=== PATIENT | female | born 1965 | race Caucasian/White ===

== ENCOUNTER → 2019-07-20 16:38 | Outpatient (CLI) | payer BC, SELFPAY ==
[2019-07-20 17:12] LABS: Basophils # 0.1 K/mm3 (0-0.2); Basophils % 1.7 % (0.1-2.0); Eosinophils # 0.2 K/mm3 (0.0-0.4); Eosinophils % 4.8 % (0.1-12.0); Hematocrit 38.7 % (37.0-47.0); Hemoglobin 12.3 g/dL (12.2-16.2); Lymphocytes # 2.1 K/mm3 (0.7-4.5); Lymphocytes % 44.2 % (10-50); Mean Corpuscular HGB Conc 31.7 g/dL (31.8-35.4); Mean Corpuscular Hemoglobin 28.5 pg (27.0-31.2); Mean Platelet Volume 8.7 fl (7.4-10.4); Monocytes # 0.3 K/mm3 (0.1-1.0); Monocytes % 6.3 % (1.7-9.3); Neutrophils % 42.9 % (37.0-80.0); Platelet Count 328 K/mm3 (142-424); White Blood Count 4.7 K/mm3 (4.8-10.8)
[2019-07-20 17:15] LABS: Chloride 100 mmol/L (98-107); Potassium 4.1 mmoL/L (3.5-5.1); Sodium 137 mmol/L (136-145)
[2019-07-20 17:17] LABS: Alanine Aminotransferase 20 U/L (12-78); Alkaline Phosphatase 102 U/L (38-126); Aspartate Amino Transferase 29 U/L (14-36); Bilirubin,Total 0.4 mg/dl (0.2-1.3); Blood Urea Nitrogen 11 mg/dl (7-17); Estimated Glomerular Filt Rate 65 ml/min (>60); GFR (African American) 79 ML/MIN (>60)
[2019-07-20 17:18] LABS: Albumin Level 4.3 g/dl (3.5-5.0); Albumin/Globulin Ratio 1.7 (1.1-1.8); Anion Gap 10.1 mEq/L (5-15); Calcium 9.8 mg/dl (8.4-10.2); Carbon Dioxide 31 mmol/L (22.0-30.0); Chol/HDL Ratio 2.4 (1-3.5); Cholesterol 169 mg/dl (140-200); Globulin 2.6 g/dL (1.3-3.2); Glucose 103 mg/dl (74-100); HDL Cholesterol 70 mg/dl (40-60); Total Protein,Serum 6.9 g/dl (6.3-8.2); Triglycerides 88 mg/dl (30-150); VLDL Cholesterol 18 mg/dL (0-40)
[2019-07-20 17:30] LABS: Direct LDL Cholesterol 93.31 mg/dL (100-129)
[2019-07-20 17:34] LABS: T4 (Thyroxine) 9.1 ug/dl (5.53-11.0)
[2019-07-20 17:48] LABS: Thyroid Stimulating Hormone 1.06 uIU/mL (0.465-4.68)
[2019-07-22 07:38] LABS: Vitamin D 25 Hydroxy 36.6 ng/mL (30.0-100.0)
== END ==
PROVIDERS: Visit Provider Emergency Medicine
DX: Z00.00 Encounter for general adult medical examination without abnormal findings (principal); H92.01 Otalgia, right ear
CPT/HCPCS: 80053; 80061; 82652; 84436; 84443; 85025

== ENCOUNTER → 2019-08-09 09:20 | Outpatient (CLI) | payer BC, SELFPAY ==
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
== END ==
PROVIDERS: PCP Emergency Medicine; Visit Provider Orthopaedic Surgery
DX: M25.561 Pain in right knee (principal)
CPT/HCPCS: 73564

== ENCOUNTER → 2020-10-19 14:10 | Outpatient (CLI) | payer BC, SELFPAY ==
--- NOTE | 2020-10-19 14:15 | XR_ITS ---
PROCEDURE: XR KNEE LT 4V CLINICAL INDICATION: BL Knee pain COMPARISON: CR XR KNEE RT 4V from 08/09/2019 FINDINGS: No fracture or dislocation. No lytic or blastic change. There is normal mineralization. Mild osteoarthritic changes are present at the medial and lateral compartment with decrease in the joint spaces with minimal osteophyte formation at the lateral femoral condyle. The patellofemoral joint has an unremarkable appearance. There may be a small suprapatellar effusion. Other findings:None. IMPRESSION: Mild osteoarthritic change with possible small knee joint effusion Dictated by: Konstantin Monae MD 10/19/2020 14:42 Konstantin Monae MD in [place] 10/19/2020 14:42
--- NOTE | 2020-10-19 14:15 | XR_ITS ---
PROCEDURE: XR KNEE RT 4V CLINICAL INDICATION: Bilateral knee pain COMPARISON: CR XR KNEE RT 4V from 08/09/2019 FINDINGS: Severe osteoarthritic changes are present involving the lateral compartment with loss of joint space osteosclerosis and osteophyte formation. There is mild genu valgum with mild lateral translation of the tibia by proximally 6 mm. Minimal osteoarthritic change medial compartment with minimal spurring of the proximal medial tibial plateau. Suprapatellar effusion suspected. No fracture or dislocation. No lytic or blastic change. IMPRESSION: Severe osteoarthritic changes of the lateral compartment as described above with knee joint effusion Dictated by: Konstantin Monae MD 10/19/2020 14:44 Konstantin Monae MD in [place] 10/19/2020 14:44
== END ==
PROVIDERS: PCP Emergency Medicine; Visit Provider Orthopaedic Surgery
DX: M25.561 Pain in right knee (principal); M25.562 Pain in left knee
CPT/HCPCS: 73564

== ENCOUNTER → 2020-10-29 17:53 | Outpatient (CLI) | payer BC, SELFPAY ==
[2020-10-29 19:04] LABS: Chloride 98 mmol/L (98-107); Sodium 136 mmol/L (136-145)
[2020-10-29 19:05] LABS: Potassium 4.1 mmoL/L (3.5-5.1)
[2020-10-29 19:07] LABS: Alanine Aminotransferase 20 U/L (12-78); Alkaline Phosphatase 122 U/L (38-126); Anion Gap 14.1 mEq/L (5-15); Aspartate Amino Transferase 28 U/L (14-36); Bilirubin,Total 0.4 mg/dl (0.2-1.3); Blood Urea Nitrogen 13 mg/dl (7-17); Carbon Dioxide 28 mmol/L (22.0-30.0); Estimated Glomerular Filt Rate 87 ml/min (>60); GFR (African American) 105 ML/MIN (>60)
[2020-10-29 19:08] LABS: Albumin Level 4.4 g/dl (3.5-5.0); Albumin/Globulin Ratio 1.7 (1.1-1.8); Calcium 9.2 mg/dl (8.4-10.2); Cholesterol 199 mg/dl (140-200); Globulin 2.6 g/dL (1.3-3.2); Glucose 89 mg/dl (74-100); HDL Cholesterol 67 mg/dl (40-60); Triglycerides 57 mg/dl (30-150); VLDL Cholesterol 11 mg/dL (0-40)
[2020-10-29 19:18] LABS: Basophils % 0.5 % (0.1-2.0); Eosinophils # 0.2 K/mm3 (0.0-0.4); Eosinophils % 2.7 % (0.1-12.0); Hematocrit 39.1 % (37.0-47.0); Hemoglobin 12.7 g/dL (12.2-16.2); Lymphocytes # 1.8 K/mm3 (0.7-4.5); Lymphocytes % 26.5 % (10-50); Mean Corpuscular HGB Conc 32.4 g/dL (31.8-35.4); Mean Corpuscular Hemoglobin 31.4 pg (27.0-31.2); Mean Corpuscular Volume 97.1 fl (81-99); Mean Platelet Volume 9.4 fl (7.4-10.4); Monocytes # 0.4 K/mm3 (0.1-1.0); Monocytes % 6.1 % (1.7-9.3); Neutrophils # 4.3 K/mm3 (1.8-7.8); Neutrophils % 64.3 % (37.0-80.0); Platelet Count 222 K/mm3 (142-424); Red Blood Count 4.03 M/mm3 (4.20-5.40); Red Cell Distribution Width 13.6 % (11.5-17.5); White Blood Count 6.7 K/mm3 (4.8-10.8)
[2020-10-29 19:19] LABS: Direct LDL Cholesterol 104.16 mg/dL (100-129)
[2020-10-29 19:24] LABS: Free T4 (Free Thyroxine) 1.42 ng/dl (0.78-2.19)
[2020-10-29 19:25] LABS: 25-OH Vitamin D, Total 36.7 ng/mL (30-100)
[2020-10-29 19:39] LABS: Thyroid Stimulating Hormone 0.65 uIU/mL (0.465-4.68)
[2020-10-30 16:49] LABS: Benzodiazepines Screen,Urine Negative ng/ml (<200)
[2020-10-30 16:50] LABS: Amphetamine/Metha Screen,Urine Negative ng/ml (<1000); Barbiturates Screen,Urine Negative ng/ml (<200)
[2020-10-30 16:51] LABS: Methadone Screen,Urine Negative ng/ml (<300)
[2020-10-30 16:52] LABS: Cannabinoid Screen,Urine Negative ng/ml (<50); Cocaine Screen,Urine Negative ng/ml (<300)
[2020-10-30 16:53] LABS: Opiate Screen,Urine Negative ng/ml (<300); Phencyclidine Screen,Urine Negative ng/ml (<25)
== END ==
PROVIDERS: Visit Provider Emergency Medicine
DX: R53.83 Other fatigue (principal); E55.9 Vitamin D deficiency, unspecified; M25.561 Pain in right knee; Z79.899 Other long term (current) drug therapy
CPT/HCPCS: 80053; 80061; 80305; 82306; 84439; 84443; 85025

== ENCOUNTER → 2021-04-09 11:27 | Outpatient (CLI) | payer BC, SELFPAY ==
--- NOTE | 2021-04-09 11:30 | XR_ITS ---
FINAL REPORT CLINICAL HISTORY: Right knee pain. COMPARISON: October 19, 2020. FINDINGS: 4 views of the right knee obtained, including sunrise view. There is no acute fracture or dislocation. There are advanced degenerative changes, greatest in the lateral compartment. Findings are similar from the previous examination. A moderate joint effusion is present. IMPRESSION: Degenerative change and moderate joint effusion. Reviewed, Interpreted and Dictated by Ron Torrez MD Transcribed by Jesica Haile PA-C Authenticated by Ron Torrez MD on 04/09/2021 01:03:[address] [facility]
== END ==
PROVIDERS: PCP Emergency Medicine; Visit Provider Orthopaedic Surgery
DX: M25.561 Pain in right knee (principal)
CPT/HCPCS: 73564

== ENCOUNTER → 2021-04-09 16:00 | Outpatient (CLI) | payer BC, SELFPAY ==
[2021-04-09 17:42] LABS: Amphetamine/Metha Screen,Urine Negative ng/ml (<1000); Barbiturates Screen,Urine Negative ng/ml (<200)
[2021-04-09 17:43] LABS: Benzodiazepines Screen,Urine Negative ng/ml (<200); Cannabinoid Screen,Urine Negative ng/ml (<50)
[2021-04-09 17:44] LABS: Cocaine Screen,Urine Negative ng/ml (<300)
[2021-04-09 17:45] LABS: Methadone Screen,Urine Negative ng/ml (<300); Opiate Screen,Urine Negative ng/ml (<300)
[2021-04-09 17:46] LABS: Phencyclidine Screen,Urine Negative ng/ml (<25)
== END ==
PROVIDERS: Visit Provider Emergency Medicine
DX: Z79.899 Other long term (current) drug therapy (principal)
CPT/HCPCS: 80305

== ENCOUNTER → 2021-05-20 11:08 | Outpatient (CLI) | payer BC, SELFPAY ==
--- NOTE | 2021-05-20 11:10 | CA_ITS ---
APPROVED REPORT EXAM: Comprehensive 2D, Doppler, and color-flow Echocardiogram Remnant Sorter: MARTINA Weaver, RVS Ht: 5 ft 7 in Wt: 171lbs BSA: 1.89 BP: 130/82 mmHg Indications: Pre-op knee replacement for arthritis, Smoker Echo Enhancing Agent Comments: Lung impedence throughout. 2D Dimensions IVSd 0.90 cm LVEF (Visual) 74.90 % PWd 0.57 cm LA Volume 55.00 mL LVDd 4.47 cm LA Volume Index 29.10 mL/m2 (M/F) 16-34 LVDs 2.52 cm Aortic Root 1.31 cm Left Atrium 3.16 cm LVOT 1.73 cm (M/F) 1.5-2.5 M-Mode Dimensions RVDd 2.04 cm (0.9-2.6) LA Diam 3.48 cm (1.9-4.0) LVDd 5.35 cm (3.5-5.7) Ao Diam 2.62 cm (2.0-3.7) LVDs 3.80 cm (3.5-5.7) IVSd 0.83 cm (0.6-1.1) PWd 0.68 cm (0.6-1.1) EF (Teich) 55.20% EPSs 0.29 cm FS 29.00% EDV (Teich) 138.30 mL TAPSE 2.29 (<1.7) ESV (Teich) 62.00 mL LV Diastology E Decel Time 223.00 (160-240 msec) E/A Ratio 1.12 MED E' 10.30 (< 7 cm/sec) MED A' 12.90 cm/s E'/MED E' Ratio 8.09 (>14) LAT E' 10.40 (<10 cm/sec) LAT A' 8.10 cm/s E/LAT E' Ratio 8.01 (>14) Aortic Valve LVOT Max 119.00 (70-110 cm/s) LVOT VTI 23.44 cm AoV Peak Avel. 165.00 (50-130 cm/s) AO Peak GR. 10.80 mmHg AO Mean GR. 5.50 (<5 mmHg) AO VTI 34.02 (18-25 cm) EPIFANIO (VTI) 1.62 (2.5-4.5 cm2) Mitral Valve MV A Velocity 74.00 (40-130 cm/s) E/A Ratio 1.12 MV Decel. Time 223.00 (160-240 ms) MV Mean Gr. 1.30 (<2mmHg) Pulmonary Valve PV Peak Velocity 71.00 (50-150 cm/s) Tricuspid Valve TR P. Velocity 243.00 cm/s RAP Estimate 10.00 mmHg RVSP 33.60 mmHg Left Ventricle Left atrium is normal size, left ventricle is normal size, there is no concentric left ventricular hypertrophy, visually estimated ejection fraction 55% with no regional wall motion abnormality, diastolic parameters are within normal range. Right Ventricle Right atrium and right ventricle are normal size and contractility. Aortic Valve Aortic valve is minimally thickened and fibrosed, there is no aortic stenosis or aortic insufficiency. Mitral Valve Mitral valve grossly normal, there is trace mitral regurgitation. Tricuspid Valve Tricuspid grossly normal, there is trace tricuspid regurgitation, calculated right ventricular systolic pressure is 33 mmHg. Pulmonic Valve Pulmonic valve is poorly visualized. Great Vessels Aortic root is normal size. Inferior vena cava is poorly visualized. Pericardium No significant pericardial effusion noted. Conclusion 1. Normal left ventricular size, preserved left ventricular systolic function, visually estimated ejection fraction 55% with regional wall motion abnormality, diastolic parameters are within normal range. 2. Trace mitral and tricuspid regurgitation, calculated right ventricular systolic pressure 33 mmHg. 3. No significant pericardial effusion. 4. Inferior vena cava is poorly visualized. Electronically signed by : Willis Hassan MD 05/20/2021 19:40:27
== END ==
PROVIDERS: PCP Emergency Medicine; Visit Provider Emergency Medicine
DX: Z01.818 Encounter for other preprocedural examination (principal)
CPT/HCPCS: 93306

== ENCOUNTER → 2021-06-06 12:02 | Outpatient (CLI) | payer BC, SELFPAY ==
[2021-06-06 14:14] LABS: Anion Gap 13.9 mEq/L (5-15); Blood Urea Nitrogen 21 mg/dl (7-17); Calcium 9.7 mg/dl (8.4-10.2); Carbon Dioxide 25 mmol/L (22.0-30.0); Chloride 105 mmol/L (98-107); Estimated Glomerular Filt Rate 74 ml/min (>60); GFR (African American) 89 ML/MIN (>60); Glucose 90 mg/dl (74-100); Potassium 3.9 mmoL/L (3.5-5.1); Sodium 140 mmol/L (136-145)
== END ==
PROVIDERS: PCP Emergency Medicine; Visit Provider Nurse Practitioner Family
DX: I51.89 Other ill-defined heart diseases (principal); R94.31 Abnormal electrocardiogram [ECG] [EKG]
CPT/HCPCS: 36415; 80048

== ENCOUNTER → 2021-06-12 12:09 | Outpatient (CLI) | payer BC, SELFPAY ==
--- NOTE | 2021-06-12 | CA_ITS ---
APPROVED REPORT Exam: Pharmacologic Technologist: Indy Pérez Ht: 5 ft 7 in Wt: 161 lbs BSA: 1.84 m2 HR: 82 bpm BP: 117/83 mmHg Indications: Abnormal ekg, Preop clearance Medical History Medications: HCTZ,,,,, Citalopram,,,,, MeLOXICAM,,,,, Famotidine,,,,, Acetaminophen,,,,, Abilify,,,,, Stress Test Details Test: LEXISCAN HR Resting HR: 88 bpm Max Heart Rate (APMHR): 163.873046 bpm Max HR Achieved: 118 bpm Target HR (85% APMHR): 138.639081 bpm % of APMHR: 72.39 Recovery HR: 103 bpm BP Resting BP: 117.0/83.0 mmHg Max BP: 122.0/76.0 mmHg Recovery BP: 116.0/76.0 mmHg ECG Resting ECG: Normal sinus rhythm Clinical Exercise duration: 04:00 min Highest Stage Achieved: Stress ECG Conclusion Symptoms: Mild shortness of air, and headache. No chest pain. Arrhythmias/Ectopy: None ST-T Changes: No significant changes. Conclusion: Unremarkable Lexiscan stress. Myoview images reported seprately. Electronically signed by : Willis Hassan MD 06/12/2021 20:46:12
--- NOTE | 2021-06-12 12:09 | NM_ITS ---
APPROVED REPORT Exam: Nuclear Stress Test Indication: TOB USE, FM HX, ABN EKG PRE-OP Patient Location: Outpatient Stress Tech: Indy Pérez NM Tech:SUREKHA Chambers RT (R)(N)(M) Ht: 5 ft 7 in Wt: 160 lbs Bra Size: 36D HR: 82 bpm BP: 117/83 mmHg BSA: 1.84 m2 BMI: 25.0 Procedure: Patient received a 0.4 mg of intravenous Lexiscan, resting heart rate 82 bpm, resting blood pressure 117/83 mmHg, with Lexiscan maximum heart rate achived was 116 bpm which is Less than 85 resting electrocardiogram shows sinus rhythm, with Lexiscan there is less than 1.5 mm % of the maximum predicted heart rate and blood pressure was 103/71 mmHg. With Lexiscan, patient denied any complaint of chest pain. Electrocardiogram ST segment depression noted from the baseline EKG. The EKG portion of the Lexiscan is nondiagnostic. Cardiac Stress and Resting SPECT Images: Cardiac Stress and Resting SPECT images were obtained using technetium 99m Myoview 32.0 mCi stress and 10.45 mCi at rest. Gated SPECT for analysis of segmental wall motion and calculation of the ejection fraction also done. Cardiac stress and resting SPECT images show uniform myocardial activity without segmental perfusion abnormality, computer derived ejection fraction 59% with no regional wall motion abnormality, right ventricle is normal size and contractility. Conclusion: 1. The EKG portion of the Lexiscan is nondiagnostic. 2. No scintigraphic evidence of reversible ischemia seen, computer ejection fraction is 59% with no regional wall motion abnormality, right ventricle is normal size and contractility. 3. Normal Lexiscan Myoview study. Electronically signed by : Willis Hassan MD 06/12/2021 20:48:36
== END ==
PROVIDERS: PCP Emergency Medicine; Visit Provider Physician Assistant
DX: R93.1 Abnormal findings on diagnostic imaging of heart and coronary circulation (principal)
CPT/HCPCS: 78452; 93017; A9502; J2785

== ENCOUNTER → 2021-07-26 14:11 | Outpatient (CLI) | payer BC, SELFPAY ==
[2021-07-26 17:19] LABS: Benzodiazepines Screen,Urine Negative ng/ml (<200)
[2021-07-26 17:20] LABS: Amphetamine/Metha Screen,Urine Negative ng/ml (<1000)
[2021-07-26 17:21] LABS: Barbiturates Screen,Urine Negative ng/ml (<200); Cannabinoid Screen,Urine Negative ng/ml (<50)
[2021-07-26 17:22] LABS: Cocaine Screen,Urine Negative ng/ml (<300); Methadone Screen,Urine Negative ng/ml (<300)
[2021-07-26 17:23] LABS: Opiate Screen,Urine Negative ng/ml (<300)
[2021-07-26 17:24] LABS: Phencyclidine Screen,Urine Negative ng/ml (<25)
== END ==
PROVIDERS: PCP Emergency Medicine; Visit Provider Emergency Medicine
DX: M25.569 Pain in unspecified knee (principal); Z79.899 Other long term (current) drug therapy
CPT/HCPCS: 80305

== ENCOUNTER → 2021-09-18 15:10 | Outpatient (CLI) | payer BC, SELFPAY ==
[2021-09-18 14:26] LABS: Amphetamine/Metha Screen,Urine Negative ng/ml (<1000)
[2021-09-18 14:27] LABS: Barbiturates Screen,Urine Negative ng/ml (<200)
[2021-09-18 14:28] LABS: Benzodiazepines Screen,Urine Negative ng/ml (<200); Cannabinoid Screen,Urine Negative ng/ml (<50)
[2021-09-18 14:29] LABS: Cocaine Screen,Urine Negative ng/ml (<300)
[2021-09-18 14:30] LABS: Methadone Screen,Urine Negative ng/ml (<300); Opiate Screen,Urine Negative ng/ml (<300)
[2021-09-18 14:32] LABS: Phencyclidine Screen,Urine Negative ng/ml (<25)
== END ==
PROVIDERS: PCP Emergency Medicine; Visit Provider Emergency Medicine
DX: Z79.899 Other long term (current) drug therapy (principal)
CPT/HCPCS: 80305

== ENCOUNTER → 2021-10-16 14:53 | Outpatient (CLI) | payer BC, SELFPAY ==
[2021-10-16 15:00] LABS: Microscopic, Urine URINE MICROSCOPIC (MICROSCOPIC)
--- NOTE | 2021-10-16 15:12 | XR_ITS ---
FINAL REPORT CLINICAL HISTORY: pre op FINDINGS: Two views of the chest were obtained. The heart size and pulmonary vascularity are within normal limits. The mediastinum is normal. No acute pulmonary abnormality is identified. There is no pneumothorax. The bony thorax is intact. IMPRESSION: No active cardiopulmonary disease. Reviewed, Interpreted and Dictated by Jay Pillai III, MD Transcribed by Anupama Dao Authenticated and [facility]
[2021-10-16 15:23] LABS: Appearance,Urine CLEAR (Clear); Bilirubin,Urine Negative (Negative); Blood, Urine Negative (Negative); Color,Urine YELLOW (Yellow); Glucose,Urine (UA) Negative (Negative); Ketones,Urine Negative (Negative); Leukocyte Esterase,Urine Negative (Negative); Nitrate,Urine Negative (Negative); Protein,Urine Negative (Negative); Specific Gravity, Urine <= 1.005 (1.005-1.030); Urobilinogen,Urine 0.2 EU/dl (0.2)
[2021-10-16 15:32] LABS: Basophils # 0.1 K/mm3 (0-0.2); Basophils % 1.5 % (0.1-2.0); Eosinophils # 0.2 K/mm3 (0.0-0.4); Eosinophils % 2.7 % (0.1-12.0); Lymphocytes # 2.2 K/mm3 (0.7-4.5); Lymphocytes % 30.4 % (10-50); Mean Corpuscular HGB Conc 31.7 g/dL (31.8-35.4); Mean Corpuscular Hemoglobin 30.4 pg (27.0-31.2); Mean Corpuscular Volume 95.7 fl (81-99); Mean Platelet Volume 9.3 fl (7.4-10.4); Monocytes # 0.4 K/mm3 (0.1-1.0); Monocytes % 5.1 % (1.7-9.3); Neutrophils # 4.3 K/mm3 (1.8-7.8); Neutrophils % 60.2 % (37.0-80.0); Platelet Count 198 K/mm3 (142-424); Red Cell Distribution Width 13.4 % (11.5-17.5); White Blood Count 7.1 K/mm3 (4.8-10.8)
[2021-10-16 16:25] LABS: Alanine Aminotransferase 13 U/L (12-78); Albumin Level 4.3 g/dl (3.5-5.0); Albumin/Globulin Ratio 1.7 (1.1-1.8); Alkaline Phosphatase 130 U/L (38-126); Anion Gap 7.7 mEq/L (5-15); Aspartate Amino Transferase 21 U/L (14-36); Blood Urea Nitrogen 11 mg/dl (7-17); Calcium 9.6 mg/dl (8.4-10.2); Carbon Dioxide 30 mmol/L (22.0-30.0); Chloride 103 mmol/L (98-107); Estimated Glomerular Filt Rate 86 ml/min (>60); GFR (African American) 104 ML/MIN (>60); Globulin 2.6 g/dL (1.3-3.2); Glucose 100 mg/dl (74-100); Potassium 4.7 mmoL/L (3.5-5.1); Sodium 136 mmol/L (136-145); Total Protein,Serum 6.9 g/dl (6.3-8.2)
[2021-10-16 16:30] LABS: Bilirubin,Total < 0.1 mg/dl (0.2-1.3)
[2021-10-16 17:44] LABS: Bacteria,Urine Trace /lpf
== END ==
PROVIDERS: PCP Emergency Medicine; Visit Provider Orthopaedic Surgery
DX: Z01.818 Encounter for other preprocedural examination (principal); M17.11 Unilateral primary osteoarthritis, right knee; M25.561 Pain in right knee; G89.29 Other chronic pain
CPT/HCPCS: 36415; 71046; 80053; 81001; 85025; 86850

== ENCOUNTER → 2021-10-19 11:15 | Outpatient (CLI) | payer BC, SELFPAY ==
--- NOTE | 2021-10-19 11:20 | XR_ITS ---
PROCEDURE INFORMATION: Exam: XR Right Knee Exam date and time: 10/19/2021 11:24 AM Age: 56 years old Clinical indication: Screening exam; RT knee SX Thursday; Patient HX: Pre-op; Additional info: Knee pain TECHNIQUE: Imaging protocol: Radiologic exam of the Right knee. Views: 4 or more views. COMPARISON: CR XR KNEE RT 4V 04/09/2021 11:55 AM FINDINGS: Bones/joints: Loss of joint space with articular surface collapse, eburnation and osteophytosis, severe in the lateral compartment and mild medially and at the patellofemoral joint. Diffuse bone demineralization. Soft tissues: Knee joint effusion. IMPRESSION: 1. Severe degenerative change at the lateral compartment. 2. Effusion. 3. Osteopenia.
== END ==
PROVIDERS: PCP Emergency Medicine; Visit Provider Orthopaedic Surgery
DX: Z01.812 Encounter for preprocedural laboratory examination (principal); Z20.822 Contact with and (suspected) exposure to COVID-19; M25.561 Pain in right knee; M17.11 Unilateral primary osteoarthritis, right knee
CPT/HCPCS: 73564; C9803; U0003; U0005

== ENCOUNTER 2021-10-21 14:43 | Observation (INO) | payer BC, SELFPAY ==
[2021-10-21] VITALS (17 sets, daily range): BP systolic 98–121; BP diastolic 59–76; PULSE 71–88; RESP 16–19; TEMP 36.3–43; O2SAT 90–99; BMI 22.7; BMI 22.8
[2021-10-21 09:50] LABS: Coronavirus 19, PCR Not Detected (NotDetected); Influenza A, PCR Not Detected (NotDetected); Influenza B, PCR Not Detected (NotDetected)
--- NOTE | 2021-10-21 11:19 | HMH.ANESCL ---
[facility] Anesthesia Checklist - Patient Identification Patient Identification: Arm Band - Structural Data Admitted From: Home Planned Operative Procedure/s: Right TKA Consent for Planned Operative Procedure(s) Verified: Yes Verified Documents: Surgical Consent, History and Physical - NPO Status Verified Time NPO: 00:00 - Additional verifications Anesthesia Reactions: No Hx Blood Transfusions: No Blood Transfusion Reaction: No - Airway Assessment C-Spine Mobility Assessed: Yes (mp2) TMJ Mobility Assessed: Yes Dentition: Poor Dentition - Neurological Assessment Level of Consciousness: Awake, Alert - Anesthesia Plan Anesthesia Risk discussed: Yes Anesthesia Plan: Verified ASA Class: II Anesthesia Type: MAC w/Spinal (+ Adductor Canal Block) [facility] History I have reviewed the patient's past medical history: Yes Medical History: Reports:: Anxiety, Depression, Hypertension, MRSA Denies:: Cancer, Diabetes Mellitus Type 1, Diabetes Mellitus Type 2, Seizures *Have you ever received a pneumonia vaccine?: No *Have you received a flu vaccine this season?: No Other Medical History: Denies: Blood Transfusion Reaction Anesthesia experience/problems:: nac Other Surgeries: Yes: Colonoscopy, Hysterectomy-Total, Tubal Ligation, Other Amputation: No Fractures: No - *Social History Last grade of school completed: 11th or 12th Smoking Status: Current every day smoker Tobacco Type: cigarettes # Packs/Day (cigarettes): 1 Alcohol Intake: never Substance Use Type: former substance user, methamphetamine *Occupational Status:: unemployed Housing: house Household Members: family *Travel in the last 8 weeks: None - Psychiatric History Pschychiatric History:: Reports:: Anxiety, Depression Family Hx:: Heart Attack, Hypertension
--- NOTE | 2021-10-21 13:39 | XR_ITS ---
FINAL REPORT CLINICAL HISTORY: post total knee arthroplasty COMPARISON: 10/19/2021 FINDINGS: RIGHT KNEE 3 views were obtained. There are interval changes of right knee arthroplasty. A drain is present. No immediate complications are identified. IMPRESSION: Interval postoperative changes with no immediate complications identified. Reviewed, Interpreted and Dictated by Jay Pillai III, MD Transcribed by Ashley Prasad Authenticated and . [facility]
--- NOTE | 2021-10-21 14:16 | P.PN_ITS ---
[facility] Anesthesia Record Part I Intake, IV Amount: 1,500 Estimated blood loss (mL): 50 Urine output (mL): 700 Blood Pressure: 112/60 SaO2: 99 Pulse Rate: 73 Respiratory Rate: 16 Temperature: 98.3 F Patient is:: Drowsy, Stable Stable to PACU at:: 14:10
--- NOTE | 2021-10-21 14:28 | SUR.OPER ---
LATE ENTRY 1400 Time out performed for adductor canal block. Adductor canal block performed by Michell Quick CRNA. Procedure completed 1404. Pt transported to PACU via bed.
--- NOTE | 2021-10-21 14:51 | HMH.PHAINT ---
MEDICATION RECONCILIATION COMPLETED ON PATIENT USING EXTERNAL FILL HISTORY FROM PHARMACY. -BRICE BOO, NIKKOD
--- NOTE | 2021-10-21 14:53 | PC.NURSE ---
pt arrived to floor via stretcher from surgery @14:40
--- NOTE | 2021-10-21 15:00 | HMH.OPNOTE ---
Date of procedure: 10/21/21 Pre-op Diagnosis:: Advanced degenerative arthritis, right knee Post-op Diagnosis:: Same Procedure performed:: Uncemented total knee arthroplasty, right knee Surgeon:: Iron Waterman MD Business Info Consultant(s):: Aida Lowe PA-C WELDER EXPERIMENTAL:: Hilton Quick Anesthesia: regional (Adductor canal block), spinal Estimated blood loss (mL): 50 Clinical Note:: Patient is a 56-year-old female with activity limiting advanced tricompartmental osteoarthritis and severe [id number]-[id number] changes over the lateral compartment with a progressive valgus deformity of the right knee. She presented with unremitting severe pain not relieved by conservative management. The arthritic process and pain are advanced to the point that it is becoming a hazard for the patient with risk of falling and injuring herself.? A total knee arthroplasty is indicated to relieve the pain, improve function, reduce the risk of falls and improve quality of life.? She has history of anxiety, depression and arthritis. She is unemployed and is a chronic-smoker. Patient has history of drug abuse in the past and is on chronic prescribed pain medication at present. Please refer to my office note for full details. Operative findings:: As noted on the preoperative evaluation, the knee joint had a partially correctable valgus deformity of 15 degrees. As seen on the x-rays, there are tricompartmental degenerative changes with the lateral compartment showing more advanced [id number] changes. The the lateral meniscus significantly degenerated. There is osteophyte formation over all 3 compartments. Bone quality is good. Operative note:: On the day of the surgery the patient and her sister were met in the preoperative area. I have again reviewed the clinical and x-ray findings and discussed the diagnosis, natural history and management options including both nonsurgical and surgical.? Patient has advanced degenerative arthritis of the right knee and has failed to respond satisfactorily to appropriate conservative management in the past. Therefore, she has opted for a total knee arthroplasty.? The right knee joint is tender and painful, and is limiting her mobility, ADLs and quality of life.? Also, the knee gives out occasionally and patient is at risk of falls resulting in fractures.? I have again discussed the details of the procedure, risks and benefits and alternatives in detail. The complications discussed include but are not limited to infection, injury to nerves and blood vessels including injury to popliteal artery, injury to tendons and ligaments, DVT and PE, fat embolism, intraoperative fracture, limb length inequality, patella fracture, patellofemoral instability, patellar clunk syndrome, quadriceps and patellar tendon rupture, implant failure, component loosening, periprosthetic femur and tibia fractures, stiffness/arthrofibrosis, limp, incomplete relief of pain, incomplete functional recovery, likely need for further surgery in future including revision and anesthetic complications including heart attack, stroke and even .? We also discussed about the likely need for blood transfusion and transfusion reactions. We discussed how any of these events can be devastating. We have discussed nonsurgical alternatives as well. Given that she has significant valgus deformity, I have also discussed the specific complications related to surgery and a valgus knee. These include but are not limited to peroneal nerve palsy, tibiofemoral and patellofemoral instability, loss of range of movements, patellar dislocation or subluxation and likely need for use of constrained implants. Patient understands and wishes to proceed with a right total knee arthroplasty as planned, and I believe that she is fully informed as to the risks, benefits, and alternatives including nonsurgical alternatives. We also discussed the postoperative course including the rehab and physical therapy required. A physical examinati
[2021-10-21 15:04] LABS: Microscopic,Cath URINE MICROSCOPIC (MICROSCOPIC)
[2021-10-21 15:26] LABS: Appearance,Urine/Cath CLEAR (Clear); Bilirubin,Cath Negative (Negative); Blood, Urine/Cath Negative (Negative); Color,Urine/Cath YELLOW (Yellow); Glucose,Urine/Cath (UA) Negative (Negative); Ketones,Urine/Cath Negative (Negative); Leukocyte Esterase,Cath Negative (Negative); Nitrate,Cath Negative (Negative); PH,Urine/Cath 5.5 (5.0-8.5); Protein,Urine/Cath Negative (Negative); Urobilinogen,Cath 0.2 EU/dl (0.2)
--- NOTE | 2021-10-21 15:33 | P.PN_ITS ---
Subjective Date: 10/21/21 Time: 15:30 Principal diagnosis: S/p total knee arthroplasty, right Interval history: Patient is status post right total knee arthroplasty earlier today. Patient is lying down on the bed. She says the nerve block did not last long and is report ing some pain. No history of any nausea or vomiting. No history of any cough, chest pain, shortness of breath or palpitations. Her sister is by the bedside. PN: Obj Ex Vital signs: Temp Pulse Resp BP Pulse Ox 98.3 F 75 16 112/69 96 10/21/21 14:17 10/21/21 14:30 10/21/21 14:30 10/21/21 14:30 10/21/21 14:30 Narrative: Exam: General appearance: alert, active, awake Cardiovascular: regular rate & rhythm, normal peripheral pulses Respiratory: No respiratory distress noted, speaks in full sentences ABD: soft and non tender Neuro: alert, awake, oriented x 3 On examination of the lower extremities the limb lengths are equal. On examination of the right knee the dressings are clean, dry and intact. Leg compartments are soft. Distal pulses are 2+. Capillary refill is brisk. She has numbness over her right foot and ankle. She is actively moving the ankle, foot and the toes. She is able to dorsiflex the foot and toes against resistance. Postoperative check x-ray reviewed along with radiologist report. The x-rays show right total knee arthroplasty in satisfactory alignment. No complications noted. - Urinary Catheter Management Berry Cath placed during this visit: no Progress Note: A&P (1) Primary osteoarthritis of right knee Status: Chronic (2) S/P total knee arthroplasty Status: Acute Assessment and Plan for All Diagnoses:: I have reviewed the clinical and operative findings and procedure performed with the patient. Postoperative pain management is going to be an issue with her given the fact that she has been on long-term Percocet 10/325 every 6 hourly. I have explained the same to the patient and she understands. Continue DVT prophylaxis and as needed pain medication. Care management consult regarding discharge planning.
[2021-10-21 15:50] LABS: Bacteria,Urine/Cath 1+ /lpf; Mucus,Urine/Cath 1+ /lpf; Squamous Epithelial Ur./Cath Occasional #/hpf (0-5); WBC,Urine/Cath Occasional #/hpf (0-3)
[2021-10-22] VITALS: BP 143/83; PULSE 91; RESP 16; TEMP 38.5; O2SAT 94
--- NOTE | 2021-10-22 03:46 | PC.NURSE ---
Pt is alert and oriented x4, pt has been resting throughout shift. Pt has complained of pain 3 times this shift, medicated prn per may. Pt has polar pack to right knee, dressing CDI, and KALPESH drain noted and draining, 50mL out of KALPESH at beginning of shift. BLE pedal pulses bounding and skin is warm. Berry in place and draining light yellow urine. Pt has received 2 bags of antibiotics this shift. Abdomen soft and non tender, bowel sounds are active. Lung sounds are clear. Call light in reach and working.
[2021-10-22 04:00] VITALS: BP 116/64; PULSE 94; RESP 18; TEMP 38.1; O2SAT 91
[2021-10-22 04:47] VITALS: BMI 23.8
[2021-10-22 06:56] LABS: Basophils % 0.3 % (0.1-2.0); Eosinophils % 0.3 % (0.1-12.0); Hematocrit 36.1 % (37.0-47.0); Hemoglobin 11.7 g/dL (12.2-16.2); Lymphocytes # 1.3 K/mm3 (0.7-4.5); Lymphocytes % 14.8 % (10-50); Mean Corpuscular HGB Conc 32.4 g/dL (31.8-35.4); Mean Corpuscular Hemoglobin 30.9 pg (27.0-31.2); Mean Corpuscular Volume 95.3 fl (81-99); Mean Platelet Volume 10.2 fl (7.4-10.4); Monocytes # 0.4 K/mm3 (0.1-1.0); Monocytes % 4.9 % (1.7-9.3); Neutrophils % 79.6 % (37.0-80.0); Platelet Count 161 K/mm3 (142-424); Red Blood Count 3.79 M/mm3 (4.20-5.40); Red Cell Distribution Width 13.4 % (11.5-17.5); White Blood Count 8.8 K/mm3 (4.8-10.8)
[2021-10-22 06:59] LABS: Chloride 106 mmol/L (98-107); Sodium 134 mmol/L (136-145)
[2021-10-22 07:00] LABS: Potassium 3.5 mmoL/L (3.5-5.1)
[2021-10-22 07:03] LABS: Anion Gap 4.5 mEq/L (5-15); Blood Urea Nitrogen 12 mg/dl (7-17); Calcium 8.4 mg/dl (8.4-10.2); Carbon Dioxide 27 mmol/L (22.0-30.0); Creatinine Clearance Estimated 97 mL/min (50-200); Estimated Glomerular Filt Rate 86 ml/min (>60); GFR (African American) 104 ML/MIN (>60); Glucose 122 mg/dl (74-100)
--- NOTE | 2021-10-22 07:21 | HMH.PHAVTE ---
[facility] VTE Monitoring - Patient Demographics Admission date: 10/21/21 Report Date: 10/22/21 Time: 07:21 Allergies/Adverse Reactions: Patient Allergies From CYMBALTA Allergy (Unknown, Uncoded 09/18/21 14:34) S-BLISTERING WELTS From PARAFON FORTE DSC Allergy (Unknown, Uncoded 09/18/21 14:34) I-HIVES Height: 1.7 m Weight: 69.037 kg Patient Problems: Current Active Problems Primary osteoarthritis of right knee (Chronic) S/P total knee arthroplasty (Acute) - VTE Risk Labs: VTE Related Lab Results Hgb 11.7 g/dL (12.2-16.2) L 10/22/21 06:09 Hct 36.1 % (37.0-47.0) L 10/22/21 06:09 Plt Count 161 K/mm3 (142-424) 10/22/21 06:09 BUN 12 mg/dl (7-17) 10/22/21 06:09 Creatinine 0.70 mg/dl (0.52-1.04) 10/22/21 06:09 Estimated Creat Clear 97 mL/min (50-200) 10/22/21 06:09 Was VTE Risk Assessment Performed: Yes VTE Score: 3 VTE Risk Level: Low Risk - Prophylaxis VTE Prophylaxis Ordered?: Yes Types of VTE Prophylaxis: IPCS Thigh High Location of Applied Device: Left Leg
[2021-10-22 08:00] VITALS: BP 121/63; PULSE 95; RESP 18; TEMP 36.9; O2SAT 92
--- NOTE | 2021-10-22 09:55 | HMH.OTEV ---
OT Inpatient Evaluation Rehab OT IP Evaluation Start: 10/21/21 14:47 Freq: ONCE Status: Complete Protocol: Document 10/22/21 09:44 VALERIANO (Rec: 10/22/21 09:55 VALERIANO [id number]) Rehab OT IP Assessment Subjective History Patient is a 56-year-old female with end-stage tricompartmental osteoarthritis and severe bone -on-bone changes over the lateral compartment with a progressive valgus deformity of the right knee presented with unremitting severe pain not relieved by conservative management. The arthritic process and pain are advanced to the point that it is becoming a hazard for the patient with risk of falling and injuring herself.? A total knee arthroplasty is indicated to relieve the pain, improve function, reduce the risk of falls and improve quality of life.? She has history of anxiety, depression and arthritis. She is unemployed and is a chronic- smoker. Patient has history of drug abuse. Subjective I can try to get up. Instructed Patient on proper hand and foot placement to complete supine->sit @ EOB requiring Min A. Instructed Patient on SPT from EOB-> recliner requiring Min A. Patient required extended time 2* pain and discomfort in R LE. Educated Patient re: applying pillow underneath of ankle vs knee to facilitate extension. Teach back successful. Objective Patient Orientation Person,Place,Name,Birthday, Year Upper Extremity Gross ROM WFL Bed Mobility bed mobility - supine/sit Assist Level Contact Guard/Hand Hold Transfer Training Sit/Stand/Pivot Transfer Assist Level Minimal x 1 (25% assist) Chair Transfer Ability
--- NOTE | 2021-10-22 10:08 | PC.NURSE ---
Ronded on pt, cleaned and straightened room. Pt laying in bed resting, no needs voiced at this time.
--- NOTE | 2021-10-22 10:27 | HMH.PTEV ---
Physical Therapy Evaluation Rehab PT IP Evaluation Start: 10/21/21 14:47 Freq: ONCE Status: Active Protocol: Document 10/22/21 10:06 MADYSON (Rec: 10/22/21 10:27 MADYSON [id number]) Subjective/History History History This is the initial IP PT evaluation for Jessica Dixon, a 56 y/o female s/p R TKA. Pt had severe OA and progressive valgus deformity - pt opted for surgical intervention following failure of conservative treatment. Pt is a chronic smoker. Written by Tierney lCark, SPT Subjective Subjective Pt lives in [facility] with her sister - no steps to enter . Pt reports that her sister is capable of helping her out. Pt c/o of 10/16 R knee pn and stiffness. Rehab PT IP Eval Objective Appearance Patient Behavior Appropriate,Cooperative Patient Orientation Person,Place,Time,Situation Difficulty following instructions none Speech Pattern Clear,Appropriate,Coherent Ambulation Patient Able to Ambulate Yes Ambulation Observation IP General Gait Pattern Observation Antalgic Gait,Wide Based Gait Ambulation Distance (feet) 4 Ambulation Assistive Device Standard Walker Ambulation Ability Supervision/Stand by,Contact Guard/Hand Hold Balance Ability to Arise Able, uses arms to help Sitting Balance Steady, safe Standing Balance Steady, wide stance Dynamic Sitting Balance Ability Good Dynamic Standing Balance Ability Fair Transfers Bed Transfer Ability Independent,Supervision/Stand by Chair Transfer Ability Independent Sit to Stand Chair Transfer Ability Supervision/Stand by,Contact Guard/Hand Hold Pain Right Knee Pain Intensity 8 Rehab PT IP prob,goals,plan Problems Date of Evaluation: 10/22/21 PT IP Problems Transfers,Gait,Balance,Self care,Safety Rehab Potential Rehab Potential Good Equipment Needs Assistive Devices Rolling / Wheeled Walker Plan PT Intervention Plan Transfers,Gait,Balance,Self care,Safety,Therapeutic Exercise PT Plan Frequency BID Duration LOS Discharge Goals Sit to Stand Chair Transfe
--- NOTE | 2021-10-22 11:56 | SW/DCPLANNER ---
Addendum entered by Ankita Morales 10/22/21 13:45: Patient scheduled for outpatient PT [facility] in [place] for tomorrow 10/23/21 at 5:30PM. I will inform patient of appointment. Original Note: I spoke with this patient regarding discharge plans: patient prefers home health services. At this time I am unable to set patient up with home health services due to insurance. Patient then stated that she would prefer outpatient PT/OT in [facility]. I have reached out to [facility] outpatient PT in [facility]. I will fax information once in computer and order to set up outpatient PT. Patient stated that if this is unable to be set up she is agreeable to returning to [facility] outpatient PT. I will continue to follow up with [facility] and . Patient may discharge later today.
[2021-10-22 12:00] VITALS: BP 122/64; PULSE 85; RESP 17; TEMP 36.8; O2SAT 92
--- NOTE | 2021-10-22 15:09 | PC.NURSE ---
rounded on patient. no concerns or questions. noted to be in some pain. patient was up in chair so assisted patient back to bed. patient was a stand by assist. replaced ice pack. primary nurse retrieved pain medication for patient at that time. assisted with getting comfortable in bed. no other needs voiced. call light within reach
--- NOTE | 2021-10-22 15:21 | HMH.HPDC ---
General - General Admission date:: 10/21/21 Discharge date: 10/22/21 *Admission Date: 10/21/21 *Chief complaint: right knee pain *History of present illness: Ms. Dixon is a 56-year-old female patient admitted for observation following an uneventful right primary total knee arthroplasty. She has had chronic right knee pain for many years and is known to have advanced degenerative arthritis of her right knee, that predominantly affects the lateral and patellofemoral compartments. Her knee pain has failed to respond satisfactorily to conservative management. She localizes her pain to all around the knee joint with more severe pain over the lateral compartment. She states that the pain is constant and rates her right knee pain an 8 out of 10 at rest and 10 out of 10 at its worst. She states that her pain radiates towards her thigh as well as down the leg and is aggravated with walking, standing, bending, and going up or down stairs. She also reports frequent sensations of the knee giving out with associated crepitation. She does have a history of back pain and hip pain as well. No history of any distal tingling/numbness. She has tried meloxicam, Percocet, Tylenol, and gabapentin for her pain with some relief. She reports frequent night pain and sleep disturbances on a regular basis. She has undergone previous intra-articular steroid injections into her right knee with no relief. No history of any problems with the left knee. Her past medical history is significant for anxiety, depression, and arthritis. She is unemployed and is a non-smoker. She denies any other symptoms or concerns at this time. [facility] History I have reviewed the patient's past medical history: Yes Medical History: Reports:: Anxiety, Depression, Hypertension, MRSA Denies:: Cancer, Diabetes Mellitus Type 1, Diabetes Mellitus Type 2, Seizures *Have you ever received a pneumonia vaccine?: No *Have you received a flu vaccine this season?: No Other Medical History: Denies: Blood Transfusion Reaction Anesthesia experience/problems:: nac Other Surgeries: Yes: Colonoscopy, Hysterectomy-Total, Tubal Ligation, Other Amputation: No Fractures: No - *Social History Last grade of school completed: 11th or 12th Smoking Status: Current every day smoker Tobacco Type: cigarettes # Packs/Day (cigarettes): 1 Alcohol Intake: never Substance Use Type: methamphetamine *Occupational Status:: unemployed Housing: house Household Members: family *Travel in the last 8 weeks: None - Psychiatric History Pschychiatric History:: Reports:: Anxiety, Depression Family Hx:: Heart Attack, Hypertension Review of Systems - Review of Systems Review of systems:: pertinent systems reviewed and negative unless documented below - Constitutional Denies anorexia, Denies body ache(s), Denies chills, Denies fatigue, Denies lack of energy, Denies malaise, Denies night sweats - Eyes Denies change in vision - ENT Denies poor balance, Denies mouth pain, Denies nasal congestion, Denies neck pain, Denies nose pain, Denies pain with swallowing, Denies throat swelling - *Cardiovascular Denies chest pain, Denies chest pain at rest, Denies shortness of breath, Denies shortness of breath with activity, Denies leg swelling, Denies radiating jaw, neck or arm pain - *Respiratory Denies chest congestion, Denies cough, Denies shortness of breath, Denies pain on inspiration, Denies pain with cough, Denies stridor, Denies wheezing - *Gastrointestinal Denies abdominal pain, Denies change in bowel habits, Denies constipation, Denies cramping, Denies loose stools, Denies vomiting blood, Denies bright, red blood in stools, Denies black, tarry stools, Denies nausea, Denies vomiting - *Genitourinary Denies difficulty urinating, Denies urinary incontinence, Denies urinary urgency - *Musculoskeletal Reports abnormal walking, Reports joint pain, Reports joint swelling, Reports limited joint movement, Denies muscle wea
[2021-10-22 16:00] VITALS: BP 130/56; PULSE 81; RESP 17; TEMP 36.6; O2SAT 94
--- NOTE | 2021-10-22 17:20 | PC.NURSE ---
Patient discharge paperwork complete, reviewed with patient and asked any questions. IV taken out and patient stated her sister would be here to pick her up but she didn't know what time.
--- NOTE | 2021-10-23 07:57 | P.PN_ITS ---
[facility] Anesthesia Record Part II Discharge Time: 14:30 Destination: Medical Surgical Department PACU nurse assessment reviewed?: Yes Patient Condition:: Good Anesthesia Complications:: None Swallowing reflex intact?: Yes Cyanosis?: No Blood Pressure: 112/69 Pulse Rate: 75 Temperature: 98.3 F Mental Status: Alert & Oriented Pain level:: 0 Nausea and/or vomitting:: None Intake, IV Amount: 0
[2021-10-23 07:59] VITALS: BP 112/69; PULSE 75; TEMP 36.8
--- NOTE | 2021-10-23 14:05 | CARE MANAGER ---
Spoke with patient for post-discharge phone interview, patient states that she had some bledding after getting home from drain site. Patient also states she is having some pain issues. 1. Patient states she was able to get the drain site to stop bleeding with pressure. States it is fine this am. 2. Patient did not discharge with pain meds, she states she has some at home. No further issues noted at this time. Patient has outpatient PT today at 5:30, she is aware.
== END 2021-10-22 18:51 | disposition home or self-care (01) ==
LOC: 2ND 14:44
PROVIDERS: Physician Assistant Surgical; Admitting Provider Orthopaedic Surgery; PCP Emergency Medicine; Visit Provider Orthopaedic Surgery
PROC: (CPT 27447; principal; 2021-10-21 07:30)
DX: M17.11 Unilateral primary osteoarthritis, right knee (principal); Z20.822 Contact with and (suspected) exposure to COVID-19; I10 Essential (primary) hypertension; F17.210 Nicotine dependence, cigarettes, uncomplicated
CPT/HCPCS: 27447; 36415; 73560; 80048; 81001; 85025; 86850; 96374; 97161; 97165; 97530; C1713; C1776; C9803; G0378; J2405; J2704; U0003; U0005

== ENCOUNTER → 2021-11-06 14:26 | Outpatient (CLI) | payer BC, SELFPAY ==
--- NOTE | 2021-11-06 14:29 | XR_ITS ---
FINAL REPORT CLINICAL HISTORY: post op COMPARISON: October 21, 2021 FINDINGS: RIGHT KNEE Three views of the right knee reveal postoperative changes from knee arthroplasty. A drain has been removed. No complications are identified. The bony alignment is normal. There is a moderate joint effusion. No localized soft tissue abnormality is identified. IMPRESSION: Postoperative change with no identified complications. Moderate joint effusion. Reviewed, Interpreted and Dictated by Jay Pillai III, MD Transcribed by Iris Manning Authenticated and [facility]
== END ==
PROVIDERS: PCP Emergency Medicine; Visit Provider Orthopaedic Surgery
DX: M25.561 Pain in right knee (principal); Z96.651 Presence of right artificial knee joint
CPT/HCPCS: 73562

== ENCOUNTER → 2021-11-15 08:25 | Outpatient (CLI) | payer BC, SELFPAY ==
[2021-11-15 19:44] LABS: Amphetamine/Metha Screen,Urine Negative ng/ml (<1000)
[2021-11-15 19:45] LABS: Barbiturates Screen,Urine Negative ng/ml (<200)
[2021-11-15 19:46] LABS: Benzodiazepines Screen,Urine Positive ng/ml (<200); Cannabinoid Screen,Urine Negative ng/ml (<50)
[2021-11-15 19:47] LABS: Cocaine Screen,Urine Negative ng/ml (<300); Methadone Screen,Urine Negative ng/ml (<300)
[2021-11-15 19:48] LABS: Opiate Screen,Urine Positive ng/ml (<300)
[2021-11-15 19:49] LABS: Phencyclidine Screen,Urine Negative ng/ml (<25)
== END ==
PROVIDERS: PCP Emergency Medicine; Visit Provider Emergency Medicine
DX: M17.11 Unilateral primary osteoarthritis, right knee (principal)
CPT/HCPCS: 80305

== ENCOUNTER → 2021-12-03 13:04 | Outpatient (CLI) | payer BC, SELFPAY ==
--- NOTE | 2021-12-03 13:12 | XR_ITS ---
FINAL REPORT CLINICAL HISTORY: Rt TKA COMPARISON: November 06, 2021 FINDINGS: 3 views of the right knee were obtained. There is no acute bony abnormality. Changes from arthroplasty. Small joint effusion. IMPRESSION: Stable changes from arthroplasty. Reviewed, Interpreted and Dictated by Ron Torrez MD Transcribed by Sinan Paiz Authenticated and [facility]
== END ==
PROVIDERS: PCP Emergency Medicine; Visit Provider Physician Assistant Surgical
DX: M25.561 Pain in right knee (principal); Z96.651 Presence of right artificial knee joint
CPT/HCPCS: 73562

== ENCOUNTER → 2022-01-13 14:49 | Outpatient (CLI) | payer BC, SELFPAY ==
[2022-01-13 15:22] LABS: Amphetamine/Metha Screen,Urine Negative ng/ml (<1000)
[2022-01-13 15:23] LABS: Barbiturates Screen,Urine Negative ng/ml (<200); Benzodiazepines Screen,Urine Positive ng/ml (<200)
[2022-01-13 15:24] LABS: Cannabinoid Screen,Urine Negative ng/ml (<50)
[2022-01-13 15:25] LABS: Cocaine Screen,Urine Negative ng/ml (<300); Methadone Screen,Urine Negative ng/ml (<300)
[2022-01-13 15:26] LABS: Opiate Screen,Urine Positive ng/ml (<300)
[2022-01-13 15:27] LABS: Phencyclidine Screen,Urine Negative ng/ml (<25)
== END ==
PROVIDERS: PCP Emergency Medicine; Visit Provider Emergency Medicine
DX: Z79.899 Other long term (current) drug therapy (principal)
CPT/HCPCS: 80305

== ENCOUNTER → 2022-01-15 12:37 | Outpatient (CLI) | payer BC, SELFPAY ==
--- NOTE | 2022-01-15 12:45 | XR_ITS ---
FINAL REPORT CLINICAL HISTORY: s/p rt knee COMPARISON: 12/03/2021 FINDINGS: RIGHT KNEE 3 views were obtained. Postoperative changes from right total knee arthroplasty. The hardware appears in good position. There is a small joint effusion. IMPRESSION: Postoperative changes from right total knee arthroplasty. Reviewed, Interpreted and Dictated by Gurinder Thompson MD Transcribed by Ashley Prasad Authenticated and [facility]
== END ==
PROVIDERS: PCP Emergency Medicine; Visit Provider Orthopaedic Surgery
DX: M25.561 Pain in right knee (principal); Z09 Encounter for follow-up examination after completed treatment for conditions other than malignant neoplasm
CPT/HCPCS: 73562

== ENCOUNTER → 2022-03-12 16:45 | Outpatient (CLI) | payer BC, SELFPAY ==
[2022-03-12 16:29] LABS: Amphetamine/Metha Screen,Urine Negative ng/ml (<1000)
[2022-03-12 16:37] LABS: Barbiturates Screen,Urine Negative ng/ml (<200); Benzodiazepines Screen,Urine Positive ng/ml (<200)
[2022-03-12 16:38] LABS: Cannabinoid Screen,Urine Negative ng/ml (<50)
[2022-03-12 16:41] LABS: Cocaine Screen,Urine Negative ng/ml (<300); Methadone Screen,Urine Negative ng/ml (<300)
[2022-03-12 16:42] LABS: Opiate Screen,Urine Positive ng/ml (<300)
[2022-03-12 16:43] LABS: Phencyclidine Screen,Urine Negative ng/ml (<25)
== END ==
PROVIDERS: PCP Emergency Medicine; Visit Provider Emergency Medicine
DX: Z79.899 Other long term (current) drug therapy (principal)
CPT/HCPCS: 80305

== ENCOUNTER → 2022-05-07 13:14 | Outpatient (CLI) | payer BC, SELFPAY ==
[2022-05-07 18:44] LABS: Amphetamine/Metha Screen,Urine Negative ng/ml (<1000); Barbiturates Screen,Urine Negative ng/ml (<200)
[2022-05-07 18:45] LABS: Benzodiazepines Screen,Urine Positive ng/ml (<200); Cannabinoid Screen,Urine Negative ng/ml (<50)
[2022-05-07 18:47] LABS: Methadone Screen,Urine Negative ng/ml (<300); Opiate Screen,Urine Positive ng/ml (<300)
[2022-05-07 18:49] LABS: Phencyclidine Screen,Urine Negative ng/ml (<25)
[2022-05-07 19:00] LABS: Cocaine Screen,Urine Negative ng/ml (<300)
== END ==
PROVIDERS: PCP Emergency Medicine; Visit Provider Emergency Medicine
DX: Z79.899 Other long term (current) drug therapy (principal)
CPT/HCPCS: 80305

== ENCOUNTER → 2022-08-13 14:37 | Outpatient (CLI) | payer BC, SELFPAY | PROVIDERS: PCP Emergency Medicine; Visit Provider Emergency Medicine | DX: M54.2 Cervicalgia (principal); G89.29 Other chronic pain ==

== ENCOUNTER → 2022-08-13 19:23 | Outpatient (CLI) | payer BC, SELFPAY ==
[2022-08-13 21:52] LABS: Amphetamine/Metha Screen,Urine Negative ng/ml (<1000)
[2022-08-13 21:53] LABS: Barbiturates Screen,Urine Negative ng/ml (<200); Benzodiazepines Screen,Urine Positive ng/ml (<200)
[2022-08-13 21:54] LABS: Cannabinoid Screen,Urine Negative ng/ml (<50)
[2022-08-13 21:55] LABS: Cocaine Screen,Urine Negative ng/ml (<300); Methadone Screen,Urine Negative ng/ml (<300)
[2022-08-13 21:56] LABS: Opiate Screen,Urine Positive ng/ml (<300)
[2022-08-13 21:57] LABS: Phencyclidine Screen,Urine Negative ng/ml (<25)
== END ==
PROVIDERS: PCP Emergency Medicine; Visit Provider Emergency Medicine
DX: M54.2 Cervicalgia (principal); G89.29 Other chronic pain
CPT/HCPCS: 80305

== ENCOUNTER → 2022-10-14 23:26 | Outpatient (CLI) | payer BC, SELFPAY ==
[2022-10-15 13:21] LABS: Amphetamine/Metha Screen,Urine Negative ng/ml (<1000); Barbiturates Screen,Urine Negative ng/ml (<200); Benzodiazepines Screen,Urine Positive ng/ml (<200); Cannabinoid Screen,Urine Negative ng/ml (<50); Cocaine Screen,Urine Negative ng/ml (<300); Opiate Screen,Urine Positive ng/ml (<300); Phencyclidine Screen,Urine Negative ng/ml (<25)
[2022-10-15 16:37] LABS: Methadone Screen,Urine Negative ng/ml (<300)
== END ==
PROVIDERS: PCP Emergency Medicine; Visit Provider Emergency Medicine
DX: F41.9 Anxiety disorder, unspecified (principal)
CPT/HCPCS: 80305

== ENCOUNTER → 2022-11-20 15:03 | Outpatient (CLI) | payer BC, SELFPAY | PROVIDERS: PCP Emergency Medicine; Visit Provider Emergency Medicine | DX: G47.33 Obstructive sleep apnea (adult) (pediatric) (principal) | CPT/HCPCS: G0399 ==

== ENCOUNTER → 2022-12-15 11:46 | Outpatient (CLI) | payer BC, SELFPAY ==
[2022-12-15 20:38] LABS: Amphetamine/Metha Screen,Urine Negative ng/ml (<1000); Barbiturates Screen,Urine Negative ng/ml (<200)
[2022-12-15 20:40] LABS: Benzodiazepines Screen,Urine Negative ng/ml (<200)
[2022-12-15 20:41] LABS: Cannabinoid Screen,Urine Negative ng/ml (<50)
[2022-12-15 20:42] LABS: Cocaine Screen,Urine Negative ng/ml (<300)
[2022-12-15 20:43] LABS: Methadone Screen,Urine Negative ng/ml (<300)
[2022-12-15 20:44] LABS: Opiate Screen,Urine Positive ng/ml (<300); Phencyclidine Screen,Urine Negative ng/ml (<25)
== END ==
PROVIDERS: PCP Emergency Medicine; Visit Provider Emergency Medicine
DX: Z79.899 Other long term (current) drug therapy (principal)
CPT/HCPCS: 80305

== ENCOUNTER → 2022-12-24 16:58 | Outpatient (CLI) | payer BC, SELFPAY ==
--- NOTE | 2022-12-24 16:59 | MM_ITS ---
PROCEDURE INFORMATION: Exam: MG Bilateral Screening 3D Mammography Exam date and time: 12/24/2022 4:59 PM Age: 57 years old Clinical indication: Screening examination TECHNIQUE: Imaging protocol: Bilateral Screening tomosynthesis and 2D mammography including computer-aided detection (CAD) when performed. COMPARISON: 1. MG DMDB DIG MAMM-DX BRIANNA 11/16/2015 2:28 PM 2. MG DMDB DIG MAMM-DX BRIANNA 04/02/2015 1:22 PM FINDINGS: MAMMOGRAPHY: Breast composition: The breasts are heterogeneously dense, which may obscure small masses. Mass: None. Architectural distortion: None. Calcifications: No suspicious calcifications. Asymmetric density: None. Skin thickening: None. Axillary adenopathy: None. IMPRESSION: No mammographic evidence of malignancy. Annual screening is recommended unless otherwise clinically indicated. ASSESSMENT: BI-RADS Category 1: Negative
== END ==
PROVIDERS: PCP Emergency Medicine; Visit Provider Emergency Medicine
DX: Z12.31 Encounter for screening mammogram for malignant neoplasm of breast (principal)
CPT/HCPCS: 77063; 77067

== ENCOUNTER → 2023-02-19 23:00 | Outpatient (CLI) | payer BC, SELFPAY ==
[2023-02-19 18:50] LABS: Basophils # 0.1 K/mm3 (0-0.2); Basophils % 0.8 % (0.1-2.0); Eosinophils # 0.2 K/mm3 (0.0-0.4); Eosinophils % 2.5 % (0.1-12.0); Hematocrit 40.3 % (37.0-47.0); Hemoglobin 13.5 g/dL (12.2-16.2); Lymphocytes # 2.4 K/mm3 (0.7-4.5); Mean Corpuscular HGB Conc 33.5 g/dL (31.8-35.4); Mean Corpuscular Hemoglobin 31.7 pg (27.0-31.2); Mean Corpuscular Volume 94.5 fl (81-99); Mean Platelet Volume 9.3 fl (7.4-10.4); Monocytes # 0.5 K/mm3 (0.1-1.0); Monocytes % 6.3 % (1.7-9.3); Neutrophils # 4.1 K/mm3 (1.8-7.8); Neutrophils % 57.3 % (37.0-80.0); Platelet Count 215 K/mm3 (142-424); Red Blood Count 4.27 M/mm3 (4.20-5.40); Red Cell Distribution Width 13.7 % (11.5-17.5); White Blood Count 7.2 K/mm3 (4.8-10.8)
[2023-02-19 19:09] LABS: Alanine Aminotransferase 20 U/L (12-78); Albumin Level 4.7 g/dl (3.5-5.0); Albumin/Globulin Ratio 1.6 (1.1-1.8); Alkaline Phosphatase 111 U/L (38-126); Anion Gap 9.2 mEq/L (5-15); Aspartate Amino Transferase 29 U/L (14-36); Bilirubin,Total 0.5 mg/dl (0.2-1.3); Blood Urea Nitrogen 12 mg/dl (7-17); Calcium 8.9 mg/dl (8.4-10.2); Carbon Dioxide 31 mmol/L (22.0-30.0); Chloride 102 mmol/L (98-107); Estimated Glomerular Filt Rate 73 ml/min (>60); GFR (African American) 89 ML/MIN (>60); Glucose 84 mg/dl (74-100); Potassium 4.2 mmoL/L (3.5-5.1); Sodium 138 mmol/L (136-145); Total Protein,Serum 7.7 g/dl (6.3-8.2)
[2023-02-19 19:22] LABS: 25-OH Vitamin D, Total 39.6 ng/mL (30-100)
[2023-02-19 19:27] LABS: Amphetamine/Metha Screen,Urine Negative ng/ml (<1000)
[2023-02-19 19:29] LABS: Barbiturates Screen,Urine Negative ng/ml (<200); Cannabinoid Screen,Urine Negative ng/ml (<50)
[2023-02-19 19:30] LABS: Benzodiazepines Screen,Urine Negative ng/ml (<200)
[2023-02-19 19:31] LABS: Cocaine Screen,Urine Negative ng/ml (<300); Opiate Screen,Urine Positive ng/ml (<300)
[2023-02-19 19:32] LABS: Methadone Screen,Urine Negative ng/ml (<300)
[2023-02-19 19:34] LABS: Phencyclidine Screen,Urine Negative ng/ml (<25)
[2023-02-19 19:35] LABS: Thyroid Stimulating Hormone 0.08 uIU/mL (0.465-4.68)
== END ==
PROVIDERS: PCP Internal Medicine; Visit Provider Internal Medicine
DX: F41.9 Anxiety disorder, unspecified (principal); R53.83 Other fatigue; Z79.899 Other long term (current) drug therapy
CPT/HCPCS: 80053; 80305; 82043; 82306; 84443; 85025

== ENCOUNTER 2023-03-17 11:46 | Outpatient (CLI) | payer BC, SELFPAY ==
[2023-03-17 14:05] LABS: Amphetamine/Metha Screen,Urine Negative ng/ml (<1000); Barbiturates Screen,Urine Negative ng/ml (<200); Benzodiazepines Screen,Urine Positive ng/ml (<200); Cannabinoid Screen,Urine Negative ng/ml (<50); Cocaine Screen,Urine Negative ng/ml (<300); Methadone Screen,Urine Negative ng/ml (<300); Opiate Screen,Urine Positive ng/ml (<300); Phencyclidine Screen,Urine Negative ng/ml (<25)
[2023-03-17 18:42] LABS: Free T4 (Free Thyroxine) 1.41 ng/dl (0.78-2.19)
[2023-03-17 18:56] LABS: Thyroid Stimulating Hormone 0.05 uIU/mL (0.465-4.68)
[2023-03-19 13:21] LABS: Triiodothyronine (T3) Free 3.6 pg/mL (2.0-4.4)
== END 2023-03-17 23:59 ==
LOC: LAB.DROPOF 11:46
PROVIDERS: PCP Internal Medicine; Visit Provider Internal Medicine
DX: Z79.899 Other long term (current) drug therapy (principal); R79.89 Other specified abnormal findings of blood chemistry
CPT/HCPCS: 80307; 84439; 84443; 84481

== ENCOUNTER 2023-04-03 20:32 | Outpatient (CLI) | payer BC, SELFPAY ==
[2023-04-03 19:29] LABS: Phencyclidine Screen,Urine Negative ng/ml (<25)
[2023-04-03 19:36] LABS: Amphetamine/Metha Screen,Urine Positive ng/ml (<1000)
[2023-04-03 19:37] LABS: Barbiturates Screen,Urine Negative ng/ml (<200)
[2023-04-03 19:41] LABS: Cocaine Screen,Urine Negative ng/ml (<300); Methadone Screen,Urine Negative ng/ml (<300)
[2023-04-03 19:42] LABS: Opiate Screen,Urine Negative ng/ml (<300)
[2023-04-03 20:13] LABS: Cannabinoid Screen,Urine Negative ng/ml (<50)
[2023-04-03 22:19] LABS: Benzodiazepines Screen,Urine Negative ng/ml (<200)
== END 2023-04-03 23:59 ==
LOC: LAB.DROPOF 20:32
PROVIDERS: PCP Internal Medicine; Visit Provider Internal Medicine
DX: Z79.899 Other long term (current) drug therapy (principal); F15.10 Other stimulant abuse, uncomplicated; F41.1 Generalized anxiety disorder
CPT/HCPCS: 80307

== ENCOUNTER 2023-04-07 15:58 | Outpatient (CLI) | payer BC, SELFPAY ==
--- NOTE | 2023-04-07 16:03 | XR_ITS ---
FINAL REPORT CLINICAL HISTORY: back pain COMPARISON: None FINDINGS: AP and lateral views of the thoracic spine were obtained. There is no prior exam for comparison. There is no acute fracture or malalignment. Vertebral body height is preserved. Paraspinal soft tissues are within normal limits. IMPRESSION: No acute osseous abnormality of the thoracic spine. Reviewed, Interpreted and Dictated by Ron Torrez MD Transcribed by Gretta Ortega Authenticated and [facility]
--- NOTE | 2023-04-07 16:03 | XR_ITS ---
FINAL REPORT CLINICAL HISTORY: back pain COMPARISON: None FINDINGS: No fracture is identified. There is grade 2 spondylolisthesis of L4 on L5. There is mild diffuse degenerative disc disease, with facet arthropathy in the lower lumbar spine. IMPRESSION: Degenerative change as described. Reviewed, Interpreted and Dictated by Ron Torrez MD Transcribed by Gretta Ortega Authenticated and [facility]
[2023-04-07 18:44] LABS: Chol/HDL Ratio 4.1 (1-3.5); Cholesterol 234 mg/dl (140-200); HDL Cholesterol 57 mg/dl (40-60); Triglycerides 129 mg/dl (30-150); VLDL Cholesterol 26 mg/dL (0-40)
[2023-04-07 18:55] LABS: Direct LDL Cholesterol 123.82 mg/dL (100-129)
[2023-04-07 19:19] LABS: Thyroid Stimulating Hormone 0.08 uIU/mL (0.465-4.68)
[2023-04-09 09:22] LABS: Thyroid Peroxidase Antibodies 16 IU/mL (0-34)
[2023-04-09 16:13] LABS: Thyroglobulin Level <1.0 IU/mL (0.0-0.9)
[2023-04-14 10:41] LABS: Triiodothyronine (T3) Reverse 23.8
== END 2023-04-07 23:59 ==
LOC: RAD 16:00
PROVIDERS: PCP Internal Medicine; Visit Provider Internal Medicine
DX: M54.50 Low back pain, unspecified (principal); M54.6 Pain in thoracic spine; M54.9 Dorsalgia, unspecified; E03.4 Atrophy of thyroid (acquired); F41.1 Generalized anxiety disorder; Z79.899 Other long term (current) drug therapy
CPT/HCPCS: 72072; 72100; 80061; 84443; 84482; 86376; 86800

== ENCOUNTER 2023-05-13 18:20 | Outpatient (CLI) | payer BC, SELFPAY ==
[2023-05-15 08:26] LABS: Thyroid Peroxidase Antibodies 14 IU/mL (0-34)
== END 2023-05-13 23:59 ==
LOC: LAB.DROPOF 18:20
PROVIDERS: PCP Internal Medicine; Visit Provider Internal Medicine
DX: E03.4 Atrophy of thyroid (acquired) (principal); R79.89 Other specified abnormal findings of blood chemistry
CPT/HCPCS: 86376

== ENCOUNTER 2023-05-21 16:38 | Outpatient (CLI) | payer BC, SELFPAY ==
--- NOTE | 2023-05-21 17:09 | XR_ITS ---
PROCEDURE INFORMATION: Exam: XR Left Shoulder Exam date and time: 05/21/2023 6:02 PM Age: 58 years old Clinical indication: Pain; Shoulder; Left; Additional info: Pain in shoulder TECHNIQUE: Imaging protocol: Radiologic exam of the left shoulder. Views: 2 or more views. COMPARISON: CR XR CHEST 2V 10/16/2021 3:13 PM FINDINGS: Bones/joints: No acute fracture identified. Moderate degenerative changes of the glenohumeral joint with spurring and subarticular cystic change. Soft tissues: Normal. IMPRESSION: Degenerative changes. No acute abnormality.
== END 2023-05-21 23:59 ==
LOC: RAD 16:38
PROVIDERS: PCP Internal Medicine; Visit Provider Internal Medicine
DX: M25.512 Pain in left shoulder (principal); M25.612 Stiffness of left shoulder, not elsewhere classified; G89.29 Other chronic pain
CPT/HCPCS: 73030

== ENCOUNTER 2023-06-18 13:46 | Outpatient (CLI) | payer BC, SELFPAY ==
--- NOTE | 2023-06-18 13:47 | CA_ITS ---
APPROVED REPORT EXAM: Comprehensive 2D, Doppler, and color-flow Echocardiogram Bank Analyst: MARTINA Weaver, RVS Ht: 5 ft 7 in Wt: 151lbs BSA: 1.79 BP: 118/72 mmHg Indications: Dyspnea, Smoker, Edema, Murmur, Smoker 2D Dimensions IVSd 0.85 cm LVEF (Visual) 67.60 % PWd 0.87 cm LVDd 3.96 cm LVDs 2.49 cm Left Atrium 2.55 cm M-Mode Dimensions LA Diam 3.70 cm (1.9-4.0) LVDd 4.55 cm (3.5-5.7) LVDs 3.07 cm (3.5-5.7) EF (Teich) 61.00% EPSs 0.38 cm FS 32.50% EDV (Teich) 94.90 mL TAPSE 2.08 (<1.7) ESV (Teich) 37.00 mL LV Diastology E Decel Time 263 (160-240 msec) E/A Ratio 0.67 MED A' 13.70 cm/s LAT A' 10.60 cm/s Aortic Valve EPIFANIO Index 0.92 cm2/m2 AoV Peak Avel. 142.0 (50-130 cm/s) AO Peak GR. 8.10 mmHg AO Mean GR. 4.10 (<5 mmHg) AO VTI 24.8 (18-25 cm) EPIFANIO (VTI) 1.70 (2.5-4.5 cm2) Mitral Valve MV A Velocity 90.0 (40-130 cm/s) E/A Ratio 0.67 Pulmonary Valve PV Peak Velocity 77.0 (50-150 cm/s) Tricuspid Valve TR P. Velocity 245.00 cm/s RAP Estimate 10.00 mmHg RVSP 34.10 mmHg Left Ventricle The left ventricle is normal size. The left ventricular systolic function is normal. The left ventricular ejection fraction is within the normal range. There is increased LV wall thickness. There is normal LV segmental wall motion. Transmitral Doppler flow pattern suggests impaired LV relaxation. LVEF is 60%. Right Ventricle The right ventricle is normal size. The right ventricular systolic function is normal. Atria The left atrium is mildly dilated. The right atrium size is normal. There is no Doppler evidence of interatrial shunt. Aortic Valve The aortic valve is mildly thickened. There is no aortic valvular stenosis. No aortic regurgitation is present. Mitral Valve The mitral valve leaflets are mildly thickened. No evidence of mitral valve stenosis. Trace mitral regurgitation. Tricuspid Valve The tricuspid valve leaflets are thin and pliable. Moderate tricuspid regurgitation. RVSP is 25-30 mmHg. Pulmonic Valve The pulmonary valve is normal in structure. Trace pulmonic regurgitation. Great Vessels The aortic root is normal in size. The ascending aorta is not well-visualized. The IVC is not well-visualized. Pericardium There is no pericardial effusion. Other Information Study Quality: Fair Conclusion Normal biventricular systolic function. Moderate TR. RVSP 25-30 mmHg. Electronically signed by : Keyana Mcfarlane MD 06/22/2023 12:28:21
== END 2023-06-18 23:59 ==
LOC: RT 13:47
PROVIDERS: PCP Internal Medicine; Visit Provider Family Medicine
DX: R06.02 Shortness of breath (principal); R60.9 Edema, unspecified; I51.89 Other ill-defined heart diseases
CPT/HCPCS: 93306